=== PATIENT | male | born 1960 | race Caucasian/White ===

== ENCOUNTER 2018-01-26 05:46 | Day surgery (SDC) | payer BC, OTHER ==
[2018-01-23 14:11] VITALS: BMI 34.4
[2018-01-26] MEDS ORDERED: KETAMINE HCL 500 MG/10 ML VIAL ONE (07:21)
[2018-01-26] MEDS ORDERED: oxyCODONE HCL 5 MG TABLET PO PRN ×2 (07:23)
[2018-01-26 08:22] VITALS: TEMP 98
[2018-01-26 09:09] VITALS: BP 112/60; PULSE 59
== END 2018-01-26 08:50 | disposition home or self-care (01) ==
LOC: FECT 05:46
PROVIDERS: ATTEND Psychiatry & Neurology Psychiatry
PROC: GZB4ZZZ Other Electroconvulsive Therapy (ICD-10-PCS; principal; 2018-01-26 07:15)
DX: F33.2 Major depressive disorder, recurrent severe without psychotic features (principal)
CPT/HCPCS: 90870; 94760

== ENCOUNTER 2018-01-29 05:42 | Day surgery (SDC) | payer OTHER ==
[2018-01-23 14:15] VITALS: BMI 34.4
[2018-01-29] MEDS ORDERED: KETAMINE HCL 500 MG/10 ML VIAL ONE (07:30)
[2018-01-29 08:22] VITALS: TEMP 97.9
[2018-01-29 09:31] VITALS: BP 122/77; PULSE 60
== END 2018-01-29 09:15 | disposition home or self-care (01) ==
LOC: FECT 05:42
PROVIDERS: ATTEND Psychiatry & Neurology Psychiatry
PROC: GZB4ZZZ Other Electroconvulsive Therapy (ICD-10-PCS; principal; 2018-01-29 07:30)
DX: F33.2 Major depressive disorder, recurrent severe without psychotic features (principal)

== ENCOUNTER 2018-02-04 05:44 | Day surgery (SDC) | payer OTHER ==
[2018-01-23 14:28] VITALS: BMI 34.4
[2018-02-04 06:24] VITALS: TEMP 97.7
[2018-02-04] MEDS ORDERED: KETAMINE HCL 500 MG/10 ML VIAL ONE (07:04)
[2018-02-04 08:47] VITALS: BP 113/69; PULSE 52
== END 2018-02-04 08:50 | disposition home or self-care (01) ==
LOC: FECT 05:44
PROVIDERS: ATTEND Psychiatry & Neurology Psychiatry
PROC: GZB4ZZZ Other Electroconvulsive Therapy (ICD-10-PCS; principal; 2018-02-04 07:15)
DX: F33.2 Major depressive disorder, recurrent severe without psychotic features (principal)
CPT/HCPCS: 90870; 94760

== ENCOUNTER 2018-02-06 05:44 | Day surgery (SDC) | payer OTHER ==
[2018-02-02 12:04] VITALS: BMI 37.3
[2018-02-06 08:56] VITALS: TEMP 97.5
[2018-02-06 10:12] VITALS: BP 108/74; PULSE 56
== END 2018-02-06 09:05 | disposition home or self-care (01) ==
LOC: FECT 05:44
PROVIDERS: ATTEND Psychiatry & Neurology Psychiatry
PROC: GZB4ZZZ Other Electroconvulsive Therapy (ICD-10-PCS; principal; 2018-02-06)
DX: F33.2 Major depressive disorder, recurrent severe without psychotic features (principal)
CPT/HCPCS: 90870; 94760

== ENCOUNTER 2018-02-09 05:39 | Day surgery (SDC) | payer OTHER ==
[2018-02-03 12:40] VITALS: BMI 34.4
[2018-02-09 09:21] VITALS: TEMP 97.9
[2018-02-09 09:44] VITALS: BP 108/64; PULSE 58
== END 2018-02-09 09:47 | disposition home or self-care (01) ==
LOC: FECT 05:39
PROVIDERS: ATTEND Psychiatry & Neurology Psychiatry
PROC: GZB4ZZZ Other Electroconvulsive Therapy (ICD-10-PCS; principal; 2018-02-09)
DX: F33.2 Major depressive disorder, recurrent severe without psychotic features (principal)
CPT/HCPCS: 90870; 94760

== ENCOUNTER → 2018-02-11 | Day surgery (SDC) | payer OTHER ==
[2018-02-03 12:43] VITALS: BMI 34.4
[~2018-02-11] MED LIST: KETAMINE HCL 500 MG/10 ML VIAL ONE
[2018-02-11 09:26] VITALS: BP 109/71; PULSE 57; TEMP 97.9
== END | disposition home or self-care (01) ==
LOC: FECT 05:47
PROVIDERS: ATTEND Psychiatry & Neurology Psychiatry
PROC: GZB4ZZZ Other Electroconvulsive Therapy (ICD-10-PCS; principal; 2018-02-11 07:00)
DX: F33.2 Major depressive disorder, recurrent severe without psychotic features (principal)
CPT/HCPCS: 90870; 94760

== ENCOUNTER 2018-02-13 05:38 | Day surgery (SDC) | payer OTHER ==
[2018-02-03 12:56] VITALS: BMI 34.4
[2018-02-13 08:43] VITALS: BP 112/72; PULSE 58; TEMP 98
== END 2018-02-13 09:15 | disposition home or self-care (01) ==
LOC: FECT 05:38
PROVIDERS: ATTEND Psychiatry & Neurology Psychiatry
PROC: GZB4ZZZ Other Electroconvulsive Therapy (ICD-10-PCS; principal; 2018-02-13)
DX: F33.2 Major depressive disorder, recurrent severe without psychotic features (principal)
CPT/HCPCS: 90870; 94760

== ENCOUNTER 2018-02-16 06:02 | Day surgery (SDC) | payer OTHER ==
[2018-02-16 06:27] VITALS: BMI 33.4
[2018-02-16] MEDS ORDERED: KETAMINE HCL 500 MG/10 ML VIAL ONE (07:26)
[2018-02-16 08:38] VITALS: TEMP 97.8
[2018-02-16 09:13] VITALS: BP 121/77; PULSE 69
== END 2018-02-16 09:00 | disposition home or self-care (01) ==
LOC: FECT 06:02
PROVIDERS: ATTEND Psychiatry & Neurology Psychiatry
PROC: GZB4ZZZ Other Electroconvulsive Therapy (ICD-10-PCS; principal; 2018-02-16 07:00)
DX: F33.2 Major depressive disorder, recurrent severe without psychotic features (principal)
CPT/HCPCS: 90870; 94760

== ENCOUNTER 2018-02-18 09:12 | Day surgery (SDC) | payer OTHER ==
[2018-02-16 09:56] VITALS: BMI 34.4
[2018-02-18 08:39] VITALS: TEMP 97.8
[2018-02-18 08:58] VITALS: BP 122/74; PULSE 58
== END 2018-02-18 09:14 | disposition home or self-care (01) ==
LOC: FECT 09:12
PROVIDERS: ATTEND Psychiatry & Neurology Psychiatry
PROC: GZB4ZZZ Other Electroconvulsive Therapy (ICD-10-PCS; principal; 2018-02-18 07:15)
DX: F33.2 Major depressive disorder, recurrent severe without psychotic features (principal)
CPT/HCPCS: 90870; 94760

== ENCOUNTER 2018-02-20 06:16 | Day surgery (SDC) | payer OTHER ==
[2018-02-20 06:52] VITALS: BMI 33.4
[2018-02-20] MEDS ORDERED: KETAMINE HCL 500 MG/10 ML VIAL ONE (07:30)
[2018-02-20 08:46] VITALS: PULSE 58; TEMP 97.5
[2018-02-20 08:48] VITALS: BP 125/75
== END 2018-02-20 08:50 | disposition home or self-care (01) ==
LOC: FECT 06:16
PROVIDERS: ATTEND Psychiatry & Neurology Psychiatry
PROC: GZB4ZZZ Other Electroconvulsive Therapy (ICD-10-PCS; principal; 2018-02-20 07:00)
DX: F33.2 Major depressive disorder, recurrent severe without psychotic features (principal)
CPT/HCPCS: 90870; 94760

== ENCOUNTER 2018-02-23 06:16 | Day surgery (SDC) | payer OTHER ==
[2018-02-20 10:36] VITALS: BMI 33.4
[2018-02-23] MEDS ORDERED: KETAMINE HCL 500 MG/10 ML VIAL ONE (07:52)
[2018-02-23 09:10] VITALS: PULSE 58; TEMP 98.2
[2018-02-23 09:28] VITALS: BP 126/82
== END 2018-02-23 09:34 | disposition home or self-care (01) ==
LOC: FECT 06:16
PROVIDERS: ATTEND Psychiatry & Neurology Psychiatry
PROC: GZB4ZZZ Other Electroconvulsive Therapy (ICD-10-PCS; principal; 2018-02-23 08:30)
DX: F33.2 Major depressive disorder, recurrent severe without psychotic features (principal)
CPT/HCPCS: 90870; 94760

== ENCOUNTER 2018-02-25 06:09 | Day surgery (SDC) | payer OTHER ==
[2018-02-23 12:15] VITALS: BMI 33.4
[2018-02-25 06:39] VITALS: TEMP 97.9
[2018-02-25 08:42] VITALS: PULSE 57
--- NOTE | 2018-02-25 08:49 | HP ---
Admitting History and Physical - Admission History of Present Illness: Patient is a 58 y/o male with a past medical history of depression, anxiety, hypertension, and hyperlipidemia. Patient presents for ect, his last ect was 02/23. Patient reports feeling well, he reports upon the recommendation of his psychiatrist he is in the process of weaning down his ability and depakote. Patient denies any recent illnesses or hospitalizations. Patient denies any suicidal or homicidal ideation, visual or auditory hallucinations. History Source: Patient Limitations to Obtaining History: No Limitations - Smoking History Smoking history: Current some day smoker Have you smoked in the past 12 months: Yes Aproximately how many cigarettes per day: 0 If you are a former smoker, when did you quit?: [employer] - Alcohol/Substance Use Hx Alcohol Use: No - Social History Usual Living Arrangement: Yes: With Spouse ADL: Independent History of Recent Travel: No Home Medications - Allergies Allergies/Adverse Reactions: Allergies Allergy/AdvReac Type Severity Reaction Status Date / Time No Known Drug Allergies Allergy Verified 02/09/18 07:40 - Home Medications Home Medications: Ambulatory Orders Aripiprazole 5 mg PO DAILY 01/22/18 Atorvastatin Ca [Lipitor] 40 mg PO HS 01/22/18 Bisoprolol Fumarate 5 mg PO DAILY 01/22/18 Clonazepam 1 mg PO BID 01/22/18 Divalproex [Depakote -] 1,000 mg PO HS 01/22/18 Divalproex [Depakote -] 500 mg PO DAILY 01/22/18 Levomefolate/Algal Oil [Deplin-Algal Oil 15 mg Capsule] 1 each PO DAILY Paroxetine HCl 40 mg PO DAILY 01/22/18 Quinapril HCl 80 mg PO DAILY 01/22/18 Family Disease History - Family Disease History Family History: Denies Review of Systems - Review of Systems Constitutional: reports: No Symptoms Eyes: reports: No Symptoms HENT: reports: No Symptoms Neck: reports: No Symptoms Cardiovascular: reports: No Symptoms Respiratory: reports: No Symptoms Gastrointestinal: reports: No Symptoms Genitourinary: reports: No Symptoms Musculoskeletal: reports: No Symptoms Integumentary: reports: No Symptoms Neurological: reports: No Symptoms Endocrine: reports: No Symptoms Hematology/Lymphatic: reports: No Symptoms Psychiatric: reports: Depression Physical Examination Vital Signs: Vital Signs Temperature 97.9 F 02/25/18 08:30 Pulse Rate 57 L 02/25/18 08:30 Respiratory Rate 18 02/25/18 08:30 Blood Pressure 99/66 02/25/18 08:30 O2 Sat by Pulse Oximetry (%) 95 02/25/18 08:30 Constitutional: Yes: Well Nourished, No Distress, Calm Eyes: Yes: WNL, Conjunctiva Clear, EOM Intact HENT: Yes: WNL, Atraumatic, Normocephalic Neck: Yes: WNL, Supple, Trachea Midline Cardiovascular: Yes: WNL, Regular Rate and Rhythm, S1, S2 Respiratory: Yes: WNL, Regular, CTA Bilaterally Gastrointestinal: Yes: WNL, Normal Bowel Sounds, Soft ...Rectal Exam: Yes: Deferred Renal/: Yes: WNL Breast(s): Yes: WNL Musculoskeletal: Yes: WNL Extremities: Yes: WNL Edema: No Peripheral Pulses WNL: Yes Peripheral Pulses: Left Radial: 4+, Right Radial: 4+, Left Doralis Pedis: 3+, Right Dorsalis Pedis: 3+, Left Femoral: 3+, Right Femoral: 3+ Integumentary: Yes: WNL Neurological: Yes: WNL, Alert, Oriented ...Motor Strength: WNL Psychiatric: Yes: WNL, Alert, Oriented Labs: reviewed 11/11/17 Imaging - Results EKG: Image Reviewed, Other (nsr) Assessment/Plan patient is a 58 y/o male that presents for ect, labs and ekg reviewed patient is medically optimized for procedure informed consent, risk/benefits to be obtained by Dr Winslow
[2018-02-25 09:03] VITALS: BP 114/70
== END 2018-02-25 09:04 | disposition home or self-care (01) ==
LOC: FECT 06:09
PROVIDERS: ATTEND Psychiatry & Neurology Psychiatry
PROC: GZB4ZZZ Other Electroconvulsive Therapy (ICD-10-PCS; principal; 2018-02-25 07:30)
DX: F33.2 Major depressive disorder, recurrent severe without psychotic features (principal)
CPT/HCPCS: 90870; 94760

== ENCOUNTER 2018-02-27 06:28 | Day surgery (SDC) | payer OTHER ==
[2018-02-27 07:16] VITALS: TEMP 98; BMI 33.4
[2018-02-27 09:10] VITALS: BP 121/66; PULSE 55
== END 2018-02-27 09:15 | disposition home or self-care (01) ==
LOC: FECT 06:28
PROVIDERS: ATTEND Psychiatry & Neurology Psychiatry
PROC: GZB4ZZZ Other Electroconvulsive Therapy (ICD-10-PCS; principal; 2018-02-27 08:30)
DX: F33.2 Major depressive disorder, recurrent severe without psychotic features (principal)
CPT/HCPCS: 90870; 94760

== ENCOUNTER 2018-03-02 05:53 | Day surgery (SDC) | payer OTHER ==
[2018-03-02 06:47] VITALS: BMI 33.4
[2018-03-02] MEDS ORDERED: ACETAMINOPHEN 325 MG TABLET (FP) PO PRN (07:41)
[2018-03-02] MEDS ORDERED: ONDANSETRON 4 MG/2 ML VIAL IVPUSH PRN (07:41)
[2018-03-02] MEDS ORDERED: KETAMINE HCL 500 MG/10 ML VIAL ONE (07:50)
[2018-03-02 08:59] VITALS: TEMP 98.2
[2018-03-02 09:10] VITALS: BP 121/70; PULSE 61
== END 2018-03-02 09:14 | disposition home or self-care (01) ==
LOC: FECT 05:53
PROVIDERS: ATTEND Psychiatry & Neurology Psychiatry
PROC: GZB4ZZZ Other Electroconvulsive Therapy (ICD-10-PCS; principal; 2018-03-02 08:15)
DX: F33.2 Major depressive disorder, recurrent severe without psychotic features (principal)
CPT/HCPCS: 90870; 94760

== ENCOUNTER 2018-03-04 05:43 | Day surgery (SDC) | payer OTHER ==
[2018-03-02 10:20] VITALS: BMI 33.4
[2018-03-04] MEDS ORDERED: ACETAMINOPHEN 325 MG TABLET (FP) PO PRN (08:26)
[2018-03-04] MEDS ORDERED: ONDANSETRON 4 MG/2 ML VIAL IVPUSH PRN (08:26)
[2018-03-04 08:45] VITALS: TEMP 97.9
[2018-03-04 09:00] VITALS: BP 115/76; PULSE 53
== END 2018-03-04 09:03 | disposition home or self-care (01) ==
LOC: FECT 05:43
PROVIDERS: ATTEND Psychiatry & Neurology Psychiatry
PROC: GZB4ZZZ Other Electroconvulsive Therapy (ICD-10-PCS; principal; 2018-03-04 08:15)
DX: F33.2 Major depressive disorder, recurrent severe without psychotic features (principal)
CPT/HCPCS: 90870; 94760

== ENCOUNTER 2018-03-06 05:47 | Day surgery (SDC) | payer OTHER ==
[2018-03-06 07:32] VITALS: BMI 33.7
[2018-03-06 09:18] VITALS: TEMP 98
[2018-03-06 09:40] VITALS: BP 122/74; PULSE 64
== END 2018-03-06 09:40 | disposition home or self-care (01) ==
LOC: FECT 05:47
PROVIDERS: ATTEND Psychiatry & Neurology Psychiatry
PROC: GZB4ZZZ Other Electroconvulsive Therapy (ICD-10-PCS; principal; 2018-03-06 07:45)
DX: F33.2 Major depressive disorder, recurrent severe without psychotic features (principal)
CPT/HCPCS: 90870; 94760

== ENCOUNTER 2018-03-12 05:41 | Day surgery (SDC) | payer OTHER ==
[2018-03-12 06:39] VITALS: BMI 33.5
[2018-03-12] MEDS ORDERED: ONDANSETRON 4 MG/2 ML VIAL IVPUSH PRN (07:49)
[2018-03-12 09:13] VITALS: TEMP 97.7
[2018-03-12 09:15] VITALS: BP 127/77; PULSE 60
== END 2018-03-12 08:45 | disposition home or self-care (01) ==
LOC: FECT 05:41
PROVIDERS: ATTEND Psychiatry & Neurology Psychiatry
PROC: GZB4ZZZ Other Electroconvulsive Therapy (ICD-10-PCS; principal; 2018-03-12 07:00)
DX: F33.2 Major depressive disorder, recurrent severe without psychotic features (principal)
CPT/HCPCS: 90870; 94760